=== PATIENT | female | born 1935 | race Caucasian/White ===

== ENCOUNTER 2023-05-20 13:58 | Observation (INO) | payer MEDICARE, SELFPAY ==
[2023-05-20] VITALS (7 sets, daily range): BP systolic 132–170; BP diastolic 56–72; PULSE 77–92; RESP 12–20; TEMP 37–37.2; O2SAT 96–100; BMI 24.6
--- NOTE | ~2023-05-20 | MR_ITS ---
EXAMINATION: MR MRCP wo/w con/w 3D wo ind DATE: 05/21/2023 12:43 INDICATION: Epigastric pain. Transaminitis. TECHNIQUE: Magnetic resonance imaging (MRI) of the abdomen was performed without and with 13 mL Multi mei intravenous contrast. Sequences included coronal T2-weighted SS-FSE, coronal T2-weighted FS SS- FSE, coronal T2-weighted FS FIESTA, axial T2-weighted FS FIESTA, axial T2-weighted FIESTA, sagittal T 2-weighted SS-FSE, axial T1-weighted dual-echo FSPGR, axial T2-weighted SS-FSE, axial T1-weighted LAV A, axial T2-weighted STIR FSE. Thick-slab T2-weighted FRFSE-XL images were obtained for magnetic reso nance cholangiopancreatography (MRCP). Rotating maximum intensity projection 3-D reconstructions of t he volumetric data were created by the technologist. Postcontrast sequences included a time course of axial T1-weighted LAVA. COMPARISON: Ultrasound dated 05/20/2023 FINDINGS: ABDOMEN MRI: Line eventration of the right hemidiaphragm. Trace bilateral pleural effusions with mild dependent atelectasis at the bilateral lung bases. Size is normal. No pericardial effusion. There is mild central intrahepatic ductal or ductal dilation. Liver is otherwise normal gallbladder is not vi sualized and is reportedly surgically absent. Pancreas, spleen, bilateral adrenal glands and right ki dney are normal. There are several parapelvic cysts at the left kidney. Small amount of bilateral per inephric fluid. Visualized portion of the bowels are unremarkable with no obstruction. Visualized por tion of the bladder demonstrates mildly trabeculated mucosal surface which can be seen in the setting of chronic outlet obstruction or neurogenic bladder. No pathologically enlarged lower thoracic, abdo eric or upper pelvic lymphadenopathy. Normal bone marrow signal throughout. There is moderate lower thoracic spondylosis most notable for a moderate to severe stenosis at L3-L4. ABDOMEN MRCP: In addition there is mild intrahepatic ductal or ductal dilation there is mild dilation of the distal common hepatic and proximal common bile ducts which measure up to 9 mm diameter which is within norm al limits post cholecystectomy. The common bile duct tapers to 5 mm the mid duct with further smooth tapering at the ampulla without evident stricture or choledocholithiasis. Main pancreatic duct is nor mal. IMPRESSION: 1. Mild intra and extrahepatic biliary ductal dilation which is within normal limits post cholecystec priya with no evident strictures or choledocholithiasis. 2. Tiny bilateral pleural effusions with mild dependent bibasilar atelectasis. Reviewed, dictated and finalized at location A. IMPRESSION: 1. Mild intra and extrahepatic biliary ductal dilation which is within normal l imits post cholecystectomy with no evident strictures or choledocholithiasis. 2. Tiny bilateral pleural effusions with mild dependent bibasilar atelectasis.
--- NOTE | ~2023-05-20 | US_ITS ---
EXAMINATION: US right upper quadrant DATE: 05/20/2023 15:45 INDICATION: pain TECHNIQUE: Multiple grayscale and Doppler ultrasound images of the right upper quadrant were obtained . COMPARISON: None available. FINDINGS: The visualized portions of the pancreas are normal. The liver is normal with normal echogen icity and echotexture. No surface nodularity. Normal hepatopetal flow in the main portal vein. Status post cholecystectomy The common bile duct measures 7 mm. There was no sonographic Yin sign. IMPRESSION: Status post cholecystectomy, otherwise normal right upper quadrant ultrasound findings. Reviewed, dictated and finalized at location K. IMPRESSION: Status post cholecystectomy, otherwise normal right upper quadrant ultrasound f indings.
--- NOTE | ~2023-05-20 | XR_ITS ---
EXAMINATION: XR chest 2V Exam Date/Time: 05/20/2023 14:51 CDT HISTORY: STOMACH PAIN, DIARRHEA, POSSIBLE FEVER Comparison: 06/01/2004. RESULT: Lines, tubes, and devices: None. Lungs and pleura: Granulomas calcifications. Stable right hemidiaphragm elevation and eventration. S enescent/emphysematous change. No focal consolidation, pleural effusion, or pneumothorax. Cardiomediastinal silhouette: Stable. Other: No acute osseous or upper abdominal finding. IMPRESSION: No acute cardiopulmonary process. Reviewed, dictated and finalized at location K.
[2023-05-20 14:35] LABS: Basophils Percent Auto 0.6 % (0.2-1.2); Eosinophils Absolute Auto 0.1 K/mm3 (0-0.3); Eosinophils Percent Auto 1.7 % (0-4.4); Hematocrit 42.3 % (37.0-47.0); Hemoglobin 14.3 g/dL (12.0-15.0); Immature Granulocyte Absolute 0.02 K/mm3 (0.00-0.031); Immature Granulocyte Percent A 0.3 % (0-0.5); Lymphocytes Absolute Auto 0.89 K/mm3 (0.9-3.2); Lymphocytes Percent Auto 12.5 % (18.3-44.2); Mean Corpuscular HGB Conc 33.8 g/dl (32-36); Mean Corpuscular Hemoglobin 31.4 pg (26-34); Mean Corpuscular Volume 92.8 fl (80-100); Mean Platelet Volume 9.4 fl (7.4-10.4); Monocytes Absolute Auto 0.9 K/mm3 (0.1-0.6); Monocytes Percent Auto 12.5 % (2.6-8.5); Neutrophils Absolute Auto 5.1 K/mm3 (1.3-6.7); Neutrophils Percent Auto 72.4 % (45.5-73.1); Platelet Count Result 191 k/mm3 (150-375); Red Blood Count 4.56 M/mm3 (4.2-5.4); Red Cell Distribution Width 13.4 % (11.5-14.5); White Blood Count 7.1 K/mm3 (4.5-10.0)
--- NOTE | 2023-05-20 14:39 | ECG_ITS ---
Measurements Intervals [place] Rate: 78 P: 43 KS: 159 QRS: -15 QRSD: 88 T: 60 QT: 285 QTc: 324 Interpretive Statements SINUS RHYTHM DELAYED PRECORDIAL R/S TRANSITION LEFT VENTRICULAR HYPERTROPHY WITH ST-T CHANGE NONSPECIFIC ST & T-WAVE ABNORMALITY- ANTEROLAT/INF LEADS BASELINE WANDER- I, II, V6 BORDERLINE ECG NO PREVIOUS ECG AVAILABLE FOR COMPARISON Electronically Signed On 05-20-2023 16:11:32 CDT by Elliott Hernández D.O.
[2023-05-20 14:45] LABS: Alanine Aminotransferase 453 U/L (6-35); Albumin Level 4.3 g/dL (3.5-5.1); Alkaline Phosphatase 287 U/L (38-126); Anion Gap 4 mmol/L (8-16); Aspartate Amino Transferase 506 U/L (14-36); Bilirubin,Total 3.5 mg/dL (0.2-1.3); Blood Urea Nitrogen 10 mg/dL (7-17); Calcium 10.1 mg/dL (8.4-10.2); Carbon Dioxide 33 mmol/L (22-30); Chloride 101 mmol/L (98-107); Estimated CRCL calculation 40 ml/min; Estimated Glomerular Filt Rate > 60; Glucose 111 mg/dL (65-110); Lipase 146 U/L (23-300); Potassium 3.3 mmol/L (3.4-5.0); Sodium 138 mmol/L (137-145)
[2023-05-20 15:15] LABS: Troponin I < 0.012 ng/mL (0.000-0.034)
--- NOTE | 2023-05-20 15:15 | ED.ABDPAIN ---
HPI - Abdominal Pain General Chief Complaint: Abdominal Pain Stated Complaint: abd pain Time Seen by Provider: 05/20/23 14:14 History of Present Illness HPI narrative: patient is an 88-year-old female who presents ER with epigastric abdominal pain. Ongoing for last week. Waxes and wanes in intensity. Cannot identify any aggravating or alleviating factors. No association with food. She has had her gallbladder removed. She reports she also gets some mild chest pressure with this. She went to an ER last night reports having a CT scan with the infiltrate her arm with contrast and then lab work performed. She reports everything was normal so she was discharged home. Symptoms persist so she presents for a 2nd evaluation. Related Data Allergies Allergy/AdvReac Type Severity Reaction Status Date / Time No Known Allergies Allergy Unknown Verified 05/20/23 14:06 Review of Systems Review of Systems: All systems reviewed & are unremarkable except as noted in HPI and below Constitutional: Constitutional: Denies chills, Denies fatigue and Denies fever(s) ENT: Denies nasal congestion and Denies sore throat Cardiovascular: Cardiovascular: Denies chest pain, Denies rapid heart rate and Denies radiating jaw, neck or arm pain Respiratory: Respiratory: Reports no additional respiratory complaints Gastrointestinal: Gastrointestinal: Reports abdominal pain, Denies constipation, Denies heartburn, Denies diarrhea, Reports nausea and Denies vomiting Genitourinary: Genitourinary: Reports no additional female genitourinary complaints PMFSH Past Medical History Medical History (Updated 05/20/23 @ 17:38 by Bryant Duron MD) Hyperlipidemia Hypertension Surgical History Surgical History (Updated 05/20/23 @ 15:20 by Bryant Duron MD) H/O hernia repair History of appendectomy History of cholecystectomy History of hysterectomy Exam Narrative: GENERAL: Well-appearing, well-nourished, and in no acute distress. HEAD: Normocephalic, atraumatic. ENT: Mucous membranes moist. NECK: Supple. CHEST: Clear to auscultation. No respiratory distress. HEART: Regular rate and rhythm. Normal peripheral pulses. ABDOMEN: Soft, nontender, nondistended, normal active bowel sounds. EXTREMITIES: Normal range of motion. No edema. SKIN: Warm, dry, no rash. NEURO: Alert and oriented x3. PSYCH: Normal mood and affect. Course Course Emergency Course: Patient resting comfortably. Informed of results. Discussed case with GI. Recommended admission for MRCP. Vital Signs Vital signs: Vital Signs Temperature 98.9 F 05/20/23 13:53 Pulse Rate 90 05/20/23 13:53 Respiratory Rate 20 05/20/23 13:53 Blood Pressure 170/72 H 05/20/23 13:53 Pulse Oximetry 100 05/20/23 13:53 Oxygen Delivery Room Air 05/20/23 13:53 Temperature 98.9 F 05/20/23 13:53 Pulse Rate 77 05/20/23 16:46 Respiratory Rate 19 05/20/23 16:46 Blood Pressure 149/62 H 05/20/23 16:46 Pulse Oximetry 96 05/20/23 16:46 Oxygen Delivery Room Air 05/20/23 13:53 MDM - Abdominal Pain Lab Data 05/20/23 14:26 05/20/23 14:26 Labs: Lab Results 05/20/23 05/20/23 Range/Units 14:26 15:10 WBC 7.1 (4.5-10.0) K/mm3 RBC 4.56 (4.2-5.4) M/mm3 Hgb 14.3 (12.0-15.0) g/dL Hct 42.3 (37.0-47.0) % MCV 92.8 (80-100) fl MCH 31.4 (26-34) pg MCHC 33.8 (32-36) g/dl RDW 13.4 (11.5-14.5) % Plt Count 191 (150-375) k/mm3 MPV 9.4 (7.4-10.4) fl Immature Gran % (Auto) 0.3 (0-0.5) % Neut % (Auto) 72.4 (45.5-73.1) % Lymph % (Auto) 12.5 L (18.3-44.2) % Nye % (Auto) 12.5 H (2.6-8.5) % Eos % (Auto) 1.7 (0-4.4) % Baso % (Auto) 0.6 (0.2-1.2) % Lymph # (Auto) 0.89 L (0.9-3.2) K/mm3 Nye # (Auto) 0.9 H (0.1-0.6) K/mm3 Eos # (Auto) 0.1 (0-0.3) K/mm3 Baso # (Auto) 0.0 (0.0-0.1) K/mm3 Abs Immat Gran (auto) 0.02 (0.00-0.031) K/mm3 Absolute Neuts (au
[2023-05-20 15:46] LABS: Appearance Urine Cloudy (Clear); Bacteria Urine 4+ /hpf; Bilirubin Urine Negative (Negative); Blood Urine Negative (Negative); Color Urine Yellow (Yellow); Glucose Urine UA Negative (Negative); Ketones Urine Negative (Negative); Leukocyte Esterase Ur 1+ LEU/UL (Negative); Need Manual Microscopic Reviewed; Nitrate Urine Negative (Negative); Non Pathogenic Casts 0-2; Protein Urine Negative (Negative); RBC Urine 51-100 /hpf (0-2); Specific Grav Ur 1.024 (1.001-1.035); Squamous Epithelial Cell Urine Few /hpf (Few); pH Urine 5.5 (5.0-9.0)
[2023-05-20 15:48] LABS: Add Urine Microscopic? YES
[2023-05-20] MEDS: SODIUM CHLORIDE 0.9% IV 1,000 ML 125 ML IV CONT (16:45)
--- NOTE | 2023-05-20 18:28 | ADMGEN ---
This patient, Kari Haro, was admitted to [facility] Surg Room 304-02. Patient/family oriented to hospital policies and general routines including ID bracelet, bed and alarms, visiting hours, pain management, procedures, bathroom and other care routines, personal items, smoking policy, room service/diet, and visiting hours. Information on how to activate the Rapid Response Team has been discussed. Patient/Family are encouraged to report perceived risks to care and to ask questions if they do not understand what they are told or what they should do.
--- NOTE | 2023-05-20 21:58 | PM.IMHP ---
H&P: HPI History of Present Illness Date/Time: 05/20/23 21:58 Chief Complaint: Abdominal pain Narrative: 88-year-old female past medical history of essential hypertension and prior cholecystectomy who presented to the ER with abdominal pain. The patient reports that she had been out of town and began having epigastric abdominal pain 5 days ago. In pain was just below lower breast bone and at times was 10/10 in intensity. Symptoms would wax and wane. She could not identify any eliciting or relieving factors. She does not notice direct correlation with eating but she reports that she feels bad enough and becomes nauseous enough that she does not want to eat. She had a normal bowel movement 2 days ago. She reports that her abdomen does feel bloated. She has not had any associated chest pain or shortness of breath. In the ER she had a right upper quadrant ultrasound which demonstrated normal changes consistent with patient's history of prior cholecystectomy. Labs demonstrated potassium at 3.3, bilirubin at 3.5 AST 5 was 6 ALT 453 an alk-phos of 287. Patient has not noticed any significant scleral icterus but she does have subtle icterus on exam. Her urine in the ER demonstrated 1+ esterase 51-100 rbc's and 6-10 wbc's with 4+ bacteria. She reports that she has had 3 or 4 bladder suspension surgeries in the past. She occasionally does have difficulty with emptying her bladder. On exam she had a palpable bladder that was up near the umbilicus. The patient went void. Nursing staff check postvoid residual the patient still had over 500 mL of urine. And patient got up and then re-attempted voiding in had void of another 102 100 and else and still had approximately 400 and urinary retention on bladder scan. The patient was straight cathed for total of 550 mL of urine. She denies any dysuria or changes in urinary frequency. She has not noticed hematuria. She has not had any fevers or chills. Review of Systems Review of Systems: 12 systems were reviewed with pertinent positives and negatives per HPI. Except as documented in the HPI, all other systems were reviewed and are negative. [facility] Past Medical History Medical History (Updated 05/20/23 @ 22:05 by Jessica Randle DO) Hyperlipidemia Hypertension Surgical History Surgical History (Updated 05/21/23 @ 06:17 by Jessica Randle DO) H/O hernia repair History of appendectomy History of bladder suspension procedure Multiple History of cholecystectomy History of hysterectomy Family History Family History (Updated 05/21/23 @ 07:03 by Jessica Randle DO) Sibling , At age 93 Diabetes mellitus Mother , At age 99 No problems noted. Other No significant family history Social History Social History (Updated 05/21/23 @ 07:05 by Jessica Randle DO) Social History: The patient is currently living with her 2nd after her 1st . She has been to her current for 21 years. She raised 5 children. Her oldest son of complications of diabetes. 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 She is a lifelong nonsmoker and does not drink alcohol. Code status: Full code (she would not want long-term ventilation or feeding tube) Healthcare power of trade mark attorney: Laisha Rajan (daughter) Smoking status: Never smoker Alcohol intake: never Substance use: never Do You Feel Safe in your Home?: Yes Lack of Transportation: No Lack of Food: Never True Current Housing: I Have Housing Concerned About Future Housing: No Difficulty Paying Gas/Electric Bills: No Difficulty Paying for Meds: No Currently Unemployed: No Education: Don't Know Difficulty w/ Childcare or Family Care: No Spiritual care concerns: No Meds Home Medications and Allergies Home Medications Medication Instructions Recorded Confirmed Type losartan 100 1 tablet PO DAILY 05/20/23 05/20/23 [place]
[2023-05-20] MEDS: MELATONIN 5 MG TABLET PO (23:43)
[2023-05-20] MEDS: POTASSIUM CHLORIDE INJ 40 MEQ in SODIUM CHLORIDE 0.9% IV 500 ML 130 MEQ IVPB (23:43)
[2023-05-21 05:51] VITALS: BP 139/66; PULSE 80; RESP 17; TEMP 36.6; O2SAT 97
[2023-05-21 06:41] LABS: Alanine Aminotransferase 327 U/L (6-35); Albumin Level 3.2 g/dL (3.5-5.1); Alkaline Phosphatase 231 U/L (38-126); Anion Gap 3 mmol/L (8-16); Aspartate Amino Transferase 173 U/L (14-36); Bilirubin,Total 2.6 mg/dL (0.2-1.3); Blood Urea Nitrogen 9 mg/dL (7-17); Calcium 8.9 mg/dL (8.4-10.2); Carbon Dioxide 26 mmol/L (22-30); Chloride 107 mmol/L (98-107); Estimated CRCL calculation 51 ml/min; Estimated Glomerular Filt Rate > 60; Glucose 89 mg/dL (65-110); Potassium 3.7 mmol/L (3.4-5.0); Sodium 136 mmol/L (137-145)
[2023-05-21 06:47] LABS: Hematocrit 36.6 % (37.0-47.0); Hemoglobin 11.9 g/dL (12.0-15.0); Mean Corpuscular HGB Conc 32.5 g/dl (32-36); Mean Corpuscular Hemoglobin 30.7 pg (26-34); Mean Corpuscular Volume 94.6 fl (80-100); Mean Platelet Volume 9.7 fl (7.4-10.4); Platelet Count Result 155 k/mm3 (150-375); Red Blood Count 3.87 M/mm3 (4.2-5.4); Red Cell Distribution Width 13.5 % (11.5-14.5); White Blood Count 6.9 K/mm3 (4.5-10.0)
[2023-05-21 08:00] VITALS: O2SAT 97
--- NOTE | 2023-05-21 09:25 | WPDGICN ---
Assessment and Plan Assessment and plan (1) Transaminitis: Code(s): R74.01 - Elevation of levels of liver transaminase levels Status: Acute Assessment and Plan: -elevated transaminases with a total bilirubin of 3.5, AST 506, ALT 453, alkaline phosphatase 287, more hepatocellular pattern although with acute epigastric abdominal pain choledocholithiasis to be excluded and MRCP is scheduled for today and still pending - Was take 4 Tylenol arthritis daily x 2 weeks. -LFT are trending down -other differentials including viral etiologies and other chronic liver diseases if MRCP is negative. -consider liver workup and for viral etiologies and other chronic liver diseases if MRCP is normal. -further recs following MRCP (pending as of 1542) (2) Hyperbilirubinemia: Code(s): E80.6 - Other disorders of bilirubin metabolism Status: Acute Assessment and Plan: see above (3) Epigastric pain: Code(s): R10.13 - Epigastric pain Status: Acute Assessment and Plan: -This is cyclical since Sunday. Abd US is negative along with normal CXR -PPI recommended -MRCP scheduled -Consider EGD if MRCP is negative (4) Gas bloat syndrome: Code(s): K92.89 - Other specified diseases of the digestive system Status: Acute (5) Hypertension: Code(s): I10 - Essential (primary) hypertension Status: Chronic (6) History of cholecystectomy: Code(s): Z90.49 - Acquired absence of other specified parts of digestive tract Status: Acute GI Consult Note Consult date/time: 05/21/23 09:25 Reason for consult: Elevated transaminase and epigastric pain HPI: Kari Haro is a 88 year old female as be seen at the request of the hospitalist for elevated transaminase. Past medical history of hypertension, hyperlipidemia, cholecystectomy, hysterectomy, bladder suspension, appendectomy and inguinal hernia repairs. She states she was out of town in [place] for 2 weeks and on Sunday while in [place] had acute episode of epigastric abdominal pain underneath breast bone with nausea but no vomiting, felt like if she would vomit she feels somewhat better. She has not ate much since Sunday as she is afraid to eat. She had another episode Sunday and on Sunday went to [facility] ER and was told everything was negative. The pain will stop on its own. She was brought here yesterday for similar symptoms again. When she gets the intense pain it will make her feel very fatigued after. She also felt like she could burp but would not get substantial relief. Did try Gas-X with somewhat improvement. She states she had a ?blockage? many years ago here but I cannot pull up any records. She denies any chronic NSAID use but does report taking 4 Tylenol Arthritis daily over the last 2 weeks while in [place] due to arthritis along with Hylands leg cramps. Takes multtiple supplements including fish oil, biotin, D3, B12, apple cider vinegar, and turmeric. Unknown if gallbladder was removed due to stones or dyskinesia. Denies any change in bowel habits, constipation, diarrhea, melena or hematochezia. Denies any scleral icterus, jaundice or colic stools. Denies any recent antibiotic or sick or ill exposures. No recent fevers or chills. She has never been told she had elevated liver enzymes in the past. No family history of chronic liver diseases. Right upper quadrant ultrasound was normal. LFTs were significantly elevated with the total bilirubin of 3.5 AST of 506, ALT 453 and alkaline phosphatase of 287. Review of Systems Constitutional: Constitutional: Reports as per HPI Eyes: Eyes: Denies blurry vision ENT: Reports as per HPI Cardiovascular: Cardiovascular: Reports as per HPI Respiratory: Respiratory: Denies dyspnea Gastrointestinal: Gastrointestinal: Reports as per HPI Genitourinary: Genitourinary: Denies dysuria Musculoskeletal: Musculoskeletal: Reports as per H
[2023-05-21 10:58] VITALS: BMI 24.6
[2023-05-21] MEDS: diazePAM (*CRX) 5 MG TABLET PO (11:25)
[2023-05-21 14:00] VITALS: BP 148/64; PULSE 72; RESP 14; TEMP 36.6; O2SAT 100
[2023-05-21] MEDS: LOSARTAN POTASSIUM 100 MG TABLET PO (14:36)
[2023-05-21] MEDS: hydroCHLOROthiazide 12.5 MG CAPSULE PO (14:37)
[2023-05-21] MEDS: SODIUM CHLORIDE 0.9% IV 1,000 ML 125 ML IV CONT ×2 (14:51→22:05)
--- NOTE | 2023-05-21 15:02 | PM.IMPN ---
Progress Note: A&P Assessment and Plan (1) Transaminitis: Code(s): R74.01 - Elevation of levels of liver transaminase levels Status: Acute Assessment and Plan: Was taking 4 Tylenol arthritis daily x 2 weeks. elevated with a total bilirubin of 3.5, AST 506, ALT 453 on admission, alkaline phosphatase 287 GI following - MRCP today, awaiting results and further recs LFT are trending down (173/327) this am consider liver workup and for viral etiologies and other chronic liver diseases if MRCP is normal. (2) Epigastric pain: Code(s): R10.13 - Epigastric pain Status: Acute Assessment and Plan: Abd US is negative along with normal CXR will start on PPI MRCP today, GI to consider EGD if negative (3) Hyperbilirubinemia: Code(s): E80.6 - Other disorders of bilirubin metabolism Status: Acute Assessment and Plan: see above plan (4) Hypertension: Code(s): I10 - Essential (primary) hypertension Status: Chronic Assessment and Plan: monitor continue the patient's home losartan hydrochlorothiazide Subjective Date/time seen: 05/21/23 15:02 Interval history: Patient resting comfortably in bed this morning, no acute distress. Her daughter is at her bedside. She denies abdominal or urinary symptoms this am. Her urine culture is pending, but I started her on Rocephin for the time being. GI following and she had an MRCP today, pending report and further recs. Will trial clears. Review of Systems Review of Systems: 12 systems were reviewed with pertinent positives and negatives per HPI. Except as documented in the HPI, all other systems were reviewed and are negative. Exam Narrative: GENERAL: Well-appearing, well-nourished, and in no acute distress. HEAD: Normocephalic, atraumatic. ENT: Mucous membranes moist. NECK: Supple. CHEST: Clear to auscultation. No respiratory distress. HEART: RRR. Normal peripheral pulses. ABDOMEN: Soft, nontender, nondistended, normal active bowel sounds. EXTREMITIES: Normal range of motion. No edema. SKIN: Warm, dry, no rash. NEURO: Alert and oriented x3. PSYCH: Normal mood and affect. Objective Data Vital Signs Vital Signs: Vital Signs - 24 hr 05/20/23 15:15 05/20/23 15:38 05/20/23 16:46 Temperature Pulse Rate 92 80 77 Respiratory Rate 18 19 Blood Pressure 158/68 H 149/62 H Pulse Oximetry 100 96 Oxygen Delivery 05/20/23 18:07 05/20/23 18:43 05/20/23 18:31 Temperature 98.7 F 98.9 F Pulse Rate 82 88 Respiratory Rate 12 16 Blood Pressure 132/56 L 150/68 H Pulse Oximetry 99 97 Oxygen Delivery Room Air 05/20/23 20:27 05/20/23 20:00 05/21/23 05:51 Temperature 98.6 F 97.9 F Pulse Rate 80 80 Respiratory Rate 17 17 Blood Pressure 147/64 H 139/66 Pulse Oximetry 98 97 Oxygen Delivery Room Air 05/21/23 08:00 05/21/23 14:00 Temperature 97.9 F Pulse Rate 72 Respiratory Rate 14 Blood Pressure 148/64 H Pulse Oximetry 97 100 Oxygen Delivery Room Air Intake/Output Intake/Output: Intake & Output 05/18/23 05/19/23 05/20/23 05/21/23 23:59 23:59 23:59 23:59 Intake Total 1050 Output Total 550 Balance 500 Meds/Results Medications: Active Medications Generic Name Dose Route Start Last Admin Trade Name Freq PRN Reason Stop Dose Admin Diazepam 5 mg 05/21/23 09:00 05/21/23 11:25 Diazepam (*Crx) 5 Mg Tablet PO 5 mg DAILY VAMSHI Administration Hydrochlorothiazide 12.5 mg 05/21/23 09:00 05/21/23 14:37 Hydrochlorothiazide 12.5 Mg Capsule PO 06/20/23 08:59 12.5 mg DAILY VAMSHI Administration Sodium Chloride 1,000 mls @ 125 mls/hr 05/20/23 16:30 05/21/23 14:51 Normal Saline Iv IV CONT 125 mls/hr .Q8H VAMSHI Administration Ceftriaxone Sodium 1 gm in 50 mls @ 100 mls/hr 05/21/23 09:00 05/21/23 11:27 Rocephin 1 Gm/Ns 50 Ml IVPB Infused Q24H VAMSHI Infusion Losartan Potassium 100 mg 05/21/23 09:00 05/21/23
[2023-05-21 20:08] VITALS: BP 155/66; PULSE 72; RESP 16; TEMP 36.9; O2SAT 100
[2023-05-21] MEDS: MELATONIN 5 MG TABLET PO (22:05)
[2023-05-22 05:49] VITALS: BP 157/68; PULSE 77; RESP 16; TEMP 36.7; O2SAT 97
[2023-05-22] MEDS: SODIUM CHLORIDE 0.9% IV 1,000 ML 125 ML IV CONT (06:35)
[2023-05-22 06:55] LABS: Basophils Absolute Auto 0.1 K/mm3 (0.0-0.1); Basophils Percent Auto 0.8 % (0.2-1.2); Eosinophils Absolute Auto 0.3 K/mm3 (0-0.3); Eosinophils Percent Auto 4.4 % (0-4.4); Hematocrit 37.6 % (37.0-47.0); Immature Granulocyte Absolute 0.03 K/mm3 (0.00-0.031); Immature Granulocyte Percent A 0.4 % (0-0.5); Lymphocytes Absolute Auto 1.37 K/mm3 (0.9-3.2); Mean Corpuscular HGB Conc 31.9 g/dl (32-36); Mean Corpuscular Hemoglobin 30.5 pg (26-34); Mean Corpuscular Volume 95.4 fl (80-100); Mean Platelet Volume 9.6 fl (7.4-10.4); Monocytes Absolute Auto 1.1 K/mm3 (0.1-0.6); Monocytes Percent Auto 14.6 % (2.6-8.5); Neutrophils Absolute Auto 4.4 K/mm3 (1.3-6.7); Neutrophils Percent Auto 60.8 % (45.5-73.1); Platelet Count Result 157 k/mm3 (150-375); Red Blood Count 3.94 M/mm3 (4.2-5.4); Red Cell Distribution Width 13.7 % (11.5-14.5); White Blood Count 7.2 K/mm3 (4.5-10.0)
[2023-05-22 07:06] LABS: Alanine Aminotransferase 222 U/L (6-35); Albumin Level 3.1 g/dL (3.5-5.1); Alkaline Phosphatase 203 U/L (38-126); Anion Gap 0 mmol/L (8-16); Aspartate Amino Transferase 66 U/L (14-36); Bilirubin,Total 1.1 mg/dL (0.2-1.3); Blood Urea Nitrogen 9 mg/dL (7-17); Calcium 8.7 mg/dL (8.4-10.2); Carbon Dioxide 29 mmol/L (22-30); Chloride 109 mmol/L (98-107); Estimated CRCL calculation 51 ml/min; Estimated Glomerular Filt Rate > 60; Glucose 86 mg/dL (65-110); Potassium 3.8 mmol/L (3.4-5.0); Sodium 138 mmol/L (137-145)
[2023-05-22 07:43] LABS: Hepatitis B Surface Antigen Negative (Negative)
[2023-05-22 07:49] LABS: HAV RESULT Negative (Negative); Hepatitis B Core IgM Result Negative (Negative)
[2023-05-22 08:01] LABS: Hepatitis C Virus Antibody Negative (Negative)
[2023-05-22] MEDS: LOSARTAN POTASSIUM 100 MG TABLET PO (10:39)
[2023-05-22] MEDS: hydroCHLOROthiazide 12.5 MG CAPSULE PO (10:39)
[2023-05-22] MEDS: diazePAM (*CRX) 5 MG TABLET PO (10:39)
[2023-05-22] MEDS: IBUPROFEN 400 MG TABLET PO (10:40)
[2023-05-22] MEDS: PANTOPRAZOLE SODIUM IV 40 MG VIAL IV PUSH (10:44)
--- NOTE | 2023-05-22 12:15 | WPDGIPROGNO ---
Progress Note: A&P Assessment and Plan (1) Elevated liver enzymes: Code(s): R74.8 - Abnormal levels of other serum enzymes Status: Acute Assessment and Plan: mrcp reviewed, no bile duct abnormalitiy wonder if she passes stone/sludge already trending down another differential could be SOD tolerating diet, she can go home and follow-up office in ~ 4 weeks with CMP as outpatient (2) Epigastric pain: Code(s): R10.13 - Epigastric pain Status: Acute Assessment and Plan: resolved (3) Gas bloat syndrome: Code(s): K92.89 - Other specified diseases of the digestive system Status: Acute (4) History of cholecystectomy: Code(s): Z90.49 - Acquired absence of other specified parts of digestive tract Status: Acute Subjective Date/time seen: 05/22/23 12:15 Interval history: no more abdominal pain, she is feeling comfortable today with neck pain using ice pack, probably positional Review of Systems Review of Systems: All systems reviewed & are unremarkable except as noted in HPI and below Exam Const: General: cooperative, healthy appearing, comfortable and no acute distress Orientation/consciousness: oriented to person, oriented to place and oriented to time HENMT: Head: normal to inspection Face/Nose/Sinus: Normal nares present Eyes: General: appearance normal, both eyes and all related structures Neck: Other: neck discomfort Chest: Chest palpation & inspection: normal inspection of the chest Resp: Effort & Inspection: normal respiratory effort and able to speak in complete sentences Auscultation: clear to auscultation bilaterally Cardio: Rate: regular rate Rhythm: regular rhythm GI: Inspection: normal to inspection GI Palp: Yes Soft to palpation and No Tenderness to palpation present (GI) Auscultation: normal bowel sounds Rectal Exam: deferred Skin: General skin exam: normal color and no rashes or lesions noted Neuro: General: oriented to person, oriented to place and oriented to time Speech: normal speech Extrem: General: normal to inspection Psych: Mental Status: mental status grossly normal Objective Data Vital Signs Vital Signs: Vital Signs - 24 hr 05/21/23 14:00 05/21/23 20:08 05/21/23 20:00 Temperature 97.9 F 98.5 F Pulse Rate 72 72 Respiratory Rate 14 16 Blood Pressure 148/64 H 155/66 H Pulse Oximetry 100 100 Oxygen Delivery Room Air 05/22/23 05:49 Temperature 98.1 F Pulse Rate 77 Respiratory Rate 16 Blood Pressure 157/68 H Pulse Oximetry 97 Oxygen Delivery Intake/Output Intake/Output: Intake & Output 05/19/23 05/20/23 05/21/23 05/22/23 23:59 23:59 23:59 23:59 Intake Total 2254.2 1320 Output Total 950 Balance 1304.2 1320 Meds/Results Medications: Active Medications Generic Name Dose Route Start Last Admin Trade Name Freq PRN Reason Stop Dose Admin Hydrochlorothiazide 12.5 mg 05/21/23 09:00 05/22/23 10:39 Hydrochlorothiazide 12.5 Mg Capsule PO 06/20/23 08:59 12.5 mg DAILY VAMSHI Administration Ibuprofen 400 mg 05/22/23 10:10 05/22/23 10:40 Ibuprofen 400 Mg Tablet PO 400 mg Q6H PRN Administration Pain Rated 1-3 Losartan Potassium 100 mg 05/21/23 09:00 05/22/23 10:39 Losartan Potassium 100 Mg Tablet PO 06/20/23 08:59 100 mg DAILY VAMSHI Administration Melatonin 5 mg 05/20/23 21:00 05/21/23 22:05 Melatonin 5 Mg Tablet PO 5 mg HS VAMSHI Administration Ondansetron HCl 4 mg 05/20/23 16:29 Ondansetron Inj 4 Mg/2 Ml Vial IV PUSH Q4H PRN Nausea Pantoprazole Sodium 40 mg 05/22/23 09:00 05/22/23 10:44 Pantoprazole Sodium Iv 40 Mg Vial IV PUSH 40 mg QAM VAMSHI Administration Radiology Results: ITS Impressions Chest X-Ray 05/20/23 15:08 IMPRESSION: No acute cardiopulmonary process. Upper Quadrant Ultrasound 05/20/23 16:04 IMPRESSION: Status post cholecystectomy, otherwise normal right upper quadra
--- NOTE | 2023-05-22 13:23 | PM.DS ---
DS: Admitting Diagnosis Discharge Date 05/22/23 Admitting Diagnosis abdominal pain DS: Discharge Diagnosis Discharge Diagnosis (1) Transaminitis: Code(s): R74.01 - Elevation of levels of liver transaminase levels Status: Acute Assessment and Plan: Was taking 4 Tylenol arthritis daily x 2 weeks. GI following - MRCP showed no bile duct abnormality; follow up in 4 weeks LFT are trending down (66/222) this am hep panel negative (2) Epigastric pain: Code(s): R10.13 - Epigastric pain Status: Resolved (3) Hyperbilirubinemia: Code(s): E80.6 - Other disorders of bilirubin metabolism Status: Acute (4) Hypertension: Code(s): I10 - Essential (primary) hypertension Status: Chronic Assessment and Plan: continue losartan hydrochlorothiazide DS: Summary Hospital Course Hospital Course: Patient is 88-year-old female with PMH of essential hypertension and prior cholecystectomy admitted with abdominal pain. In the ER she had a right upper quadrant ultrasound which demonstrated normal changes consistent with patient's history of prior cholecystectomy. GI consulted with MRCP showing no bile duct abnormality. Liver enzymes continue to trend down. Abdominal pain has resolved. She is to follow up with her primary and GI in 4 weeks. Pain could be resolved passage of stone or SOD. PPI ordered daily for d/c. Urine culture negative, Rocephin d/c. She is stable to return home today as she is now tolerating a regular diet and cleared by GI. Status at Discharge Functional status at discharge: independent ambulation Overall status at discharge: patient is back to baseline Time Spent with Patient Time attestation: Total time spent providing and/or coordinating discharge services: Exam Narrative: GENERAL: Well-appearing, well-nourished, and in no acute distress. HEAD: Normocephalic, atraumatic. ENT: Mucous membranes moist. NECK: Supple. CHEST: Clear to auscultation. No respiratory distress. HEART: RRR. Normal peripheral pulses. ABDOMEN: Soft, nontender, nondistended, normal active bowel sounds. EXTREMITIES: Normal range of motion. No edema. SKIN: Warm, dry, no rash. NEURO: Alert and oriented x3. PSYCH: Normal mood and affect. DS: Data Data Completed and Pending Labs on day of discharge: Labs from last 24 hours 05/22/23 06:20 WBC 7.2 RBC 3.94 L Hgb 12.0 Hct 37.6 MCV 95.4 MCH 30.5 MCHC 31.9 L RDW 13.7 Plt Count 157 MPV 9.6 Immature Gran % (Auto) 0.4 Neut % (Auto) 60.8 Lymph % (Auto) 19.0 Dickson % (Auto) 14.6 H Eos % (Auto) 4.4 Baso % (Auto) 0.8 Lymph # (Auto) 1.37 Dickson # (Auto) 1.1 H Eos # (Auto) 0.3 Baso # (Auto) 0.1 Abs Immat Gran (auto) 0.03 Absolute Neuts (auto) 4.4 Absolute Nucleated RBC 0.000 Nucleated RBC % 0.0 Sodium 138 Potassium 3.8 Chloride 109 H Carbon Dioxide 29 Anion Gap 0 L BUN 9 Creatinine 0.60 L Estim Creat Clear Calc 51 Estimated GFR > 60 Glucose 86 Calcium 8.7 Total Bilirubin 1.1 AST 66 H ALT 222 H Alkaline Phosphatase 203 H Total Protein 6.0 L Albumin 3.1 L Hepatitis A IgM Ab Negative Hep Bs Antigen Negative Hep B Core IgM Ab Negative Hepatitis C Ab Screen Negative Discharge Plan Discharge Attending physician on discharge: Bartolo Anthony Consulting providers: Cornelia Shaw; Max Jj Discharging Clinician: Rabia Bennett Anticipated Discharge Date/Time: 05/22/23 11:07 Patient Disposition: Home, Self-Care Activity: as tolerated Diet: heart healthy Discharge Instructions: Continue to take your medications as directed. Follow up with your primary care doctor in 1-2 weeks. Continue limit your intake of Tylenol as this may contribute to your elevated liver enzymes. Seek emergency medical care if you develop: severe abdominal pain unable to eat or drink fluids chest pain shortness of breath Stand Alone Forms: Meena
== END 2023-05-22 14:20 | disposition home or self-care (01) ==
LOC: ANHED 17:38 → ANH3MEDSUR 17:58
PROVIDERS: Internal Medicine; Internal Medicine Gastroenterology; Admitting Provider Family Medicine; Emergency Provider Emergency Medicine; PCP Internal Medicine; Visit Provider Nurse Practitioner
DX: R10.13 Epigastric pain (principal); R74.01 Elevation of levels of liver transaminase levels; E80.6 Other disorders of bilirubin metabolism; K92.89 Other specified diseases of the digestive system; R33.9 Retention of urine, unspecified; R94.31 Abnormal electrocardiogram [ECG] [EKG]; I10 Essential (primary) hypertension; E78.5 Hyperlipidemia, unspecified; Z96.0 Presence of urogenital implants; Z90.49 Acquired absence of other specified parts of digestive tract; Z90.710 Acquired absence of both cervix and uterus; Z98.890 Other specified postprocedural states
CPT/HCPCS: 36415; 71046; 74183; 76376; 76705; 80053; 80074; 83690; 84484; 85025; 85027; 87086; 93005; 96361; 96365; 96375; 99285; A9270; A9577; C9113; G0378; J0696; J3480; J7030; J7040

== ENCOUNTER 2024-06-17 13:11 | Emergency (ER) | payer MEDICARE, SELFPAY ==
[2024-06-17] VITALS (24 sets, daily range): BP systolic 152–195; BP diastolic 67–117; PULSE 67–90; RESP 11–26; TEMP 36.6–36.7; O2SAT 87–100
--- NOTE | ~2024-06-17 | CT_ITS ---
EXAMINATION: CTA BRAIN/CAROTID DATE: 06/17/2024 13:32 INDICATION: Sudden onset dizziness versus transient ischemic episode or stroke TECHNIQUE: Computed tomographic angiography (CTA) of the head and neck was performed with 100 mL Omni paque-350 intravenous contrast. Multiplanar reconstructions and maximum intensity projection 3D-recon structions of the carotid arteries and of the intracranial arteries were created by the technologist on a separate workstation. Automated exposure control and iterative reconstruction technique were emp loyed.The dose-length product was 836.01 mGy-cm. COMPARISON: None. FINDINGS: Carotid arteries: Suggestion of a partially visualized diverticulum of chondral along the inferolateral margin of the i ncompletely visualized aortic arch. Small amount of nonhemodynamically significant atherosclerotic pl aque and no dissection along the visualized portion of the arch and great vessels arising from the ar ch. There is small amount of atherosclerotic plaque with 0% stenosis of the right carotid bulb relati ve to normal distal artery lumen diameter (NASCET criteria). There is small about the prior plaque in the distalmost left common carotid artery with no evident plaque and 0% stenosis of the left carotid bulb relative to normal distal artery lumen diameter. Multinodular goiter with left thyroid nodule m easuring up to 1.8 cm. Cervical soft tissues are otherwise unremarkable. Visualized upper lungs are c lear. Moderate cervical spondylosis. Intracranial arteries The left vertebral artery is mildly dominant. There is an hemodynamically significant atherosclerotic plaque along the bilateral carotid siphons. There is no hemodynamically significant stenosis in the vertebral, basilar and internal carotid arteries. Vertebral arteries are codominant. There is a <2 mm diameter infundibulum arising from the right internal carotid artery origin of either a tiny either anterior choroidal artery or posterior communicating artery. There are no aneurysms identified. Both A1 and P1 segments are patent. There is a moderate 50-70% stenosis stenosis at the right P1 segment Cerebral arterial arborization appears symmetric. No abnormal enhancing brain lesions identified. IMPRESSION: 1. 0% stenosis of the right and left carotid bulbs relative to normal distal artery lumen diameter (N ASCET criteria). 2. Moderate, 50-70% stenosis at the right P1 segment. Otherwise unremarkable cerebral CT angiogram. Reviewed, dictated and finalized at location A. IMPRESSION: 1. 0% stenosis of the right and left carotid bulbs relative to normal distal ar juliette lumen diameter (NASCET criteria). 2. Moderate, 50-70% stenosis at the right P1 segment. Otherwise unremarkable ce rebral CT angiogram.
--- NOTE | ~2024-06-17 | CT_ITS ---
EXAMINATION: CT brain wo con DATE: 06/17/2024 13:22 INDICATION: Dizziness versus transient ischemic episode. TECHNIQUE: Computed tomography (CT) of the head was performed without intravenous contrast. Sagittal and coronal reconstructions were performed. The mA was adjusted according to patient size. Iterative reconstruction technique was employed. The dose-length product was 605.33 mGy-cm. COMPARISON: None FINDINGS: No acute intracranial hemorrhage, acute infarction or abnormal extra axial fluid collection. There is mild scattered white matter hypoattenuation consistent with chronic small vessel ischemic disease. S ymmetric prominence of the sulci consistent with mild age-appropriate diffuse cerebral volume loss. V entricles are normal and symmetric. No mass/mass effect. Changes of bilateral intraocular lens replac ement. The orbits, paranasal sinuses and mastoid air cells are normal. IMPRESSION: 1. Normal aging brain. No acute intracranial process. Reviewed, dictated and finalized at location A.
--- NOTE | ~2024-06-17 | XR_ITS ---
CHEST RADIOGRAPH CLINICAL HISTORY: cva? . COMPARISON: 05/20/2023 TECHNIQUE: Single portable view of the chest. FINDINGS The cardiomediastinal silhouette is unremarkable. The lungs are clear. Eventration of the right hemidiaphragm, unchanged from prior. IMPRESSION: No focal infiltrate or effusion. Reviewed, dictated and finalized at location A.
--- NOTE | 2024-06-17 13:15 | ECG_ITS ---
Test Date: 2024-06-17 14:01:41 Measurements Intervals [place] Rate: 72 P: 50 MT: 153 QRS: -25 QRSD: 92 T: 66 QT: 328 QTc: 360 Interpretive Statements SINUS RHYTHM DELAYED PRECORDIAL R/S TRANSITION LEFT VENTRICULAR HYPERTROPHY WITH ST-T CHANGE MINIMAL Q WAVES- HIGH LATERAL LEADS BASELINE ARTIFACT- II, III, AVF BORDERLINE ECG No previous ECG available for comparison Electronically Signed On 06-17-2024 14:08:54 CDT by Elliott Hernández D.O.
[2024-06-17 13:35] LABS: Glucose Point of Care 114 mg/dl (65-105)
--- NOTE | 2024-06-17 13:49 | ED.GENADULT ---
HPI - General Adult General Chief complaint: Dizziness Stated complaint: dizzy-vision issues Time Seen by Provider: 06/17/24 13:38 History of Present Illness HPI narrative: Patient 89-year-old female who presents emergency department with chief complaint stroke-like symptoms. The patient reports she was last known well around noon reports she was up visiting her who was in the hospital the patient reports that she had blurry vision double vision and noticed that her right arm may have felt a little heavier than normal. The patient does report initially had the 80 TIA in the but has not had 1 since reports no prior history of dysrhythmia reports that she is just on antihypertensive and does not take an aspirin daily Related Data Home Medications ?Medication ?Instructions ?Recorded ?Confirmed ?Last Taken ?Type losartan 100 1 tablet PO DAILY 05/20/23 05/20/23 05/20/23 09:00 History mg-hydrochlorothiazide 12.5 mg tablet Allergies Allergy/AdvReac Type Severity Reaction Status Date / Time No Known Allergies Allergy Unknown Verified 05/20/23 14:06 Review of Systems Review of Systems: A 10 system review of systems was completed on the patient and is negative except for what is stated in the HPI. Nursing and ancillary documentation was reviewed. [facility] Past Medical History Medical History Elevated liver enzymes Hyperlipidemia Hypertension Surgical History Surgical History History of bladder suspension procedure Multiple History of hysterectomy History of cholecystectomy History of appendectomy H/O hernia repair Family History Family History Sibling , At age 93 Diabetes mellitus Mother , At age 99 No problems noted. Other No significant family history Social History Social History Social History: The patient is currently living with her 2nd after her 1st . She has been to her current for 21 years. She raised 5 children. Her oldest son of complications of diabetes. 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 She is a lifelong nonsmoker and does not drink alcohol. Code status: Full code (she would not want long-term ventilation or feeding tube) Healthcare power of insurance defense attorney: Laisha Rajan (daughter) Smoking status: Never smoker Alcohol intake: never Substance use: never Do You Feel Safe in your Home?: Yes Lack of Transportation: No Lack of Food: Never True Current Housing: I Have Housing Concerned About Future Housing: No Difficulty Paying Gas/Electric Bills: No Difficulty Paying for Meds: No Currently Unemployed: No Education: Don't Know Difficulty w/ Childcare or Family Care: No Spiritual care concerns: No Exam Narrative: GENERAL: Well-appearing, well-nourished, and in no acute distress. HEAD: Normocephalic, atraumatic. EYES: PERRLA and EOMI. ENT: Nares clear, no rhinorrhea or epistaxis. Mucous membranes moist. NECK: Supple. CHEST: Clear to auscultation. No respiratory distress. HEART: Regular rate and rhythm. No murmur heard. Normal peripheral pulses. ABDOMEN: Soft, nontender, nondistended, normal active bowel sounds. EXTREMITIES: Normal range of motion. No edema. SKIN: Warm, dry, no rash. NEURO: No focal deficits. Alert and oriented x3. PSYCH: Normal mood and affect. Course Vital Signs Vital signs: Vital Signs Pulse Rate 84 06/17/24 13:38 Respiratory Rate 12 06/17/24 13:38 Pulse Oximetry 99 06/17/24 13:38 Temperature 36.7 C 06/17/24 17:54 Pulse Rate 77 06/17/24 17:54 Respiratory Rate 18 06/17/24 17:54 Blood Pressure 193/83 H 06/17/24 17:54 Pulse Oximetry 97 06/17/24 17:54 Medical Decision Making [facility] Narrative Medical decision making narrative: Differential diagnosis includes CVA, TIA, CT head showed no acute abnormalities CT angiography head and neck showed no large vessel occlusion. Patient is currently back to normal and has a NIH stroke scale of 0. This time the patient does not qualify for thrombolytics therapy. The plan would be to admit the patient locally for stroke workup at this time we do not have neurology coverage and the hospitalist and recommended the patient be transferred to facility with neurology coverage. The case was discussed with [facility] transfer center and the patient was accepted to [facility] Vital Signs Vital Signs: Vital Signs Pulse Rate 84 06/17/24 13:38 Respiratory Rate 12 06/17/24 13:38 Pulse Oximetry 99 06/17/24 13:38 Temperature 36.7 C 06/17/24 17:54 Pulse Rate 77 06/17/24 17:54 Respiratory Rate 18 06/17/24 17:54 Blood Pressure 193/83 H 06/17/24 17:54 Pulse Oximetry 97 06/17/24 17:54 Lab Data 06/17/24 13:38 06/17/24 13:38 Labs: Lab Results 06/17/24 06/17/24 Range/Units 13:23 13:38 WBC 7.7 (4.5-10.0) K/mm3 RBC 4.50 (4.2-5.4) M/mm3 Hgb 13.7 (12.0-15.0) g/dL Hct 42.5 (37.0-47.0) % MCV 94.4 (80-100) fl MCH 30.4 (26-34) pg MCHC 32.2 (32-36) g/dl RDW 13.2 (11.5-14.5) % Plt Count 206 (150-375) k/mm3 MPV 9.4 (7.4-10.4) fl Immature Gran % (Auto) 0.3 (0-0.5) % Neut % (Auto) 58.6 (45.5-73.1) % Lymph % (Auto) 27.9 (18.3-44.2) % Nuckolls % (Auto) 9.4 H (2.6-8.5) % Eos % (Auto) 3.0 (0-4.4) % Baso % (Auto) 0.8 (0.2-1.2) % Lymph # (Auto) 2.16 (0.9-3.2) K/mm3 Nuckolls # (Auto) 0.7 H (0.1-0.6) K/mm3 Eos # (Auto) 0.2 (0-0.3) K/mm3 Baso # (Auto) 0.1 (0.0-0.1) K/mm3 Abs Immat Gran (auto) 0.02 (0.00-0.031) K/mm3 Absolute Neuts (auto) 4.5 (1.3-6.7) K/mm3 Absolute Nucleated RBC 0.000 (0.0-0.012) K/mm3 Nucleated RBC % 0.0 (0.0-0.2) % PT 13.5 (11.1-14.7) Seconds INR 1.0 APTT 26.1 (22.3-36.8) Seconds Sodium 141 (137-145) mmol/L Potassium 4.0 (3.4-5.0) mmol/L Chloride 106 (98-107) mmol/L Carbon Dioxide 27 (22-30) mmol/L Anion Gap 8 (4-12) mmol/L BUN 24 H D (7-17) mg/dL Creatinine 1.06 H (0.7-1.0) mg/dL Estim Creat Clear Calc Not Reportable Estimated GFR 49 L (59 - ) Glucose 116 H (65-110) mg/dL POC Capillary Glucose 114 H (65-105) mg/dl Calcium 9.9 (8.4-10.2) mg/dL Total Bilirubin 0.9 (0.2-1.3) mg/dL AST 27 (14-36) U/L ALT 18 (6-35) U/L Alkaline Phosphatase 56 (38-126) U/L Troponin I < 0.012 (0.000-0.034) ng/mL Total Protein 7.0 (6.3-8.2) g/dL Albumin 4.4 (3.5-5.1) g/dL Discharge Plan Discharge Clinical Impression: Brain TIA Patient Disposition: Acute Care Hospital Condition: Stable Patient Language: Kiswahili Prescriptions: No Action losartan-hydrochlorothiazide 100-12.5 mg tablet 1 tablet PO DAILY pantoprazole 40 mg tablet,delayed release (DR/EC) 40 mg PO QAM Qty: 30 0RF Follow-up/Referrals: Jordan,Amadou Hartmann MD [Primary Care Provider] - Time of Disposition: 18:09 Quality Stroke Scale Stroke Scale 1: Stroke scale date:: 06/17/24 Stroke scale time:: 13:51 1a Level of consciousness: alert-0 1b Level of consciousness questions: answers both correctly-0 1c Level of consciousness commands: obeys both correctly-0 2 Best gaze: normal-0 3 Visual: no visual loss-0 4 Facial palsy: normal-0 5a Motor: left arm: no drift-0 5b Motor: right arm: no drift-0 6a Motor: left leg: no drift-0 6b Motor: right leg: no drift-0 7 Limb ataxia: absent-0 8 Sensory: normal-0 9 Best language: no aphasia-0 10 Dysarthria: normal-0 11 Extinction and inattention: no abnormality-0 Level:: 0
[2024-06-17 13:55] LABS: Alanine Aminotransferase 18 U/L (6-35); Albumin Level 4.4 g/dL (3.5-5.1); Alkaline Phosphatase 56 U/L (38-126); Anion Gap 8 mmol/L (4-12); Aspartate Amino Transferase 27 U/L (14-36); Bilirubin,Total 0.9 mg/dL (0.2-1.3); Blood Urea Nitrogen 24 mg/dL (7-17); Calcium 9.9 mg/dL (8.4-10.2); Carbon Dioxide 27 mmol/L (22-30); Chloride 106 mmol/L (98-107); Estimated Glomerular Filt Rate 49; Glucose 116 mg/dL (65-110); Sodium 141 mmol/L (137-145)
[2024-06-17 13:57] LABS: Partial Thromboplastin Time 26.1 Seconds (22.3-36.8); Prothrombin Time 13.5 Seconds (11.1-14.7)
[2024-06-17 13:58] LABS: Basophils Absolute Auto 0.1 K/mm3 (0.0-0.1); Basophils Percent Auto 0.8 % (0.2-1.2); Eosinophils Absolute Auto 0.2 K/mm3 (0-0.3); Hematocrit 42.5 % (37.0-47.0); Hemoglobin 13.7 g/dL (12.0-15.0); Immature Granulocyte Absolute 0.02 K/mm3 (0.00-0.031); Immature Granulocyte Percent A 0.3 % (0-0.5); Lymphocytes Absolute Auto 2.16 K/mm3 (0.9-3.2); Lymphocytes Percent Auto 27.9 % (18.3-44.2); Mean Corpuscular HGB Conc 32.2 g/dl (32-36); Mean Corpuscular Hemoglobin 30.4 pg (26-34); Mean Corpuscular Volume 94.4 fl (80-100); Mean Platelet Volume 9.4 fl (7.4-10.4); Monocytes Absolute Auto 0.7 K/mm3 (0.1-0.6); Monocytes Percent Auto 9.4 % (2.6-8.5); Neutrophils Absolute Auto 4.5 K/mm3 (1.3-6.7); Neutrophils Percent Auto 58.6 % (45.5-73.1); Platelet Count Result 206 k/mm3 (150-375); Red Cell Distribution Width 13.2 % (11.5-14.5); White Blood Count 7.7 K/mm3 (4.5-10.0)
--- OUTSIDE RECORDS SUMMARY | 2024-06-17 14:05 | XMS_ITS | CONTINUITY OF CARE DOCUMENT ---
Author Name adair, adair Address Unknown Organization [facility] Address [address] [place] [address] Phone [phone] Care Team Providers Care Certified Caregiver Name Role Phone Abel Escudero MD Unavailable [phone] CHACORTA BERNAL MD Unavailable [phone] CHACORTA BERNAL MD Unavailable [phone] PROBLEMS Condition Status Date Provider Notes OBESITY active Abel Escudero MD ENCOUNTERS Date Type Provider Location Encounter Diagnosis - In-person encounter Office Visit Abel Escudero MD [place] [facility] OBESITY VITAL SIGNS Date Observation Value Provider blood pressure, diastolic, left arm 83 mm [Hg] Miguel [place] blood pressure, systolic, left arm 147 mm [Hg] Miguel [place] blood pressure, diastolic 83 mm[Hg] Josey seph [place] blood pressure, systolic 147 mm[Hg] Karthikeyan [place] pulse rate 90 /min Miguel [place] oxygen saturation, oximetry 97 % Miguel [place] respiratory rate E&M 16 /min Miguel [place] weight E&M 166 [lb_av] Miguel [place] ALLERGIES No Known Drug Allergies HISTORY OF MEDICATION USE Medication Status Instructions Dates Provider Indications Com ments FISH OIL CAPSULE active 1 capsule by mo uth twice daily Miguel [place] GLUCOSAMINE-CHOND ROITIN TABS active 1 tablet by mouth daily Miguel [place] STOOL SOFTENER TABLET active 1 tablet by mouth twice daily Miguel [place] I-CAPS active 1 capsule by elina th twice daily Miguel [place] VITAMIN D TABS active 1 tablet by mout h daily Miguel Morales CALCIUM-MAGNESIUM -ZINC TABS active 2 tablets by mouth daily Miguel [place] SOCIAL HISTORY Date Observation Value Provider social history E&M Marital Statu s: Seema quinonez with family/friends E thnicity: Maico Jones RN social history reviewed E&M reviewed Maico Jones RN physical exercise, f requency, days per week yes [employer] caffeine use, averag e drinks per day yes [employer] alcohol use, average drinks per day none [employer] smoking status Non-smoker [employer] MENTAL STATUS Date Observation Value Provider assessment of judgme nt and insight E&M Alert and oriented to time, place and person. Mood and affect are normal. Maico Jones RN INSURANCE PROVIDERS Payer name Policy type / Coverage type [place] red democrat ID [employer] MEDICARE COMPLETE HMO Other [id number] TREATMENT PLAN Date Name Performer stress echo results Abel Escudero MD stress echo results: B P today: 147/83 Prior BP: / () S tress Echo Findings: Baseline ECG- non specific st abnormality. Post exercise ECG showed abnormal ST depression especially in the inferior leads. Baseline echo was normal. Peak exercise echo was normal5. In view of disparity on ECG an exercise myoview test may be c onsidered. GC (05/20/2009) n o further testing will be required. t he negative stress echo is reassuring and she does not need any further testing. Abel Escudero MD
--- OUTSIDE RECORDS SUMMARY | 2024-06-17 14:05 | XMS_ITS | Continuity of Care Document ---
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 Name Role Phone Gallegos OD, Stefan Unavailable Unavailable Procedures Procedure Date Contact Lens/es Other Type [employer] Eye Exam & Treatment Refraction Contact Lens/es Other Type [employer] Contact Lens Hydrophilic, Spherical [employer] CL Replacement - Vistakon Disp W/BW Soft [employer] Office/outpatient Visit, Est CL Replacement - Vistak[employer] Disp W/BW Soft [employer] Medical No Charge Contact Lens Check Refraction Post-op Follow-up Visit Remove Cataract, Insert Lens PreOp Assessment Performed Office/outpatient Visit, Est Optic Nerve Head Eval Script Printed/Phoned Pt Requ Or Pharm N ot Availab Echo Exam Of Eye Eye Exam & Treatment CL Replacement - Vistakon Disp W/BW Soft [employer] Eye Exam & Treatment Refraction Visual Functional Status Assessed Advance Directives Directive Yes / No Effective Date File Name No Information Encounters Encounter Description Practice Location Reason(s) For Visit Diagnoses Date Provider Providers Copied on [facility], [address] [place] [address] [address], [place], [place], [address], [place] tel:[phone] [facility] [place] No Information Apr-2 1-201 0 Gallegos OD Stefan. [address] [facility] , [address], [place], [place], [facility], [place]. tel:[phone] [facility], [address] [place] [address] [address], [place], [place], [address], [place] tel:[phone] [facility] No Information 2-201 0 Gallegos OD Stefan. [address] [facility] , [address], [place], [place], [facility], [place]. tel:[phone] [facility], [address] [place] [address] [address], [place], [place], [address], [place] tel:[phone] [facility] [place] No Information Nov-2 5-200 9 Gallegos OD Stefan. [address] [facility] , [address], [place], [facility], [place]. tel:[phone] [facility], [address] [place] [address] [address], [place], [place], [address], [place] tel:[phone] [facility] [place] No Information Asif-3 0-200 9 Gallegos OD Stefan. [facility] , [address], [place], [facility], [place]. tel:[phone] Office/outpat ient Visit, Est [facility], [address], [place], [place], [address], [place] tel:[phone] [facility] [place] No Information Mar-2 3-200 9 Krishnasamy Fer. [facility] [address], [place], [facility], [place]. tel:[phone] [facility], [address], [place], [place], [address], [place] tel:[phone] [facility] No Information Mar-0 2-200 9 Gallegos OD Stefan. [address] , [address], [place], [facility], [place]. tel:[phone] [facility], [address], [place], [place], [address], [place] tel:[phone] [facility] [place] No Information b1 8-200 9 Gallegos OD Stefan. [address] , [address], [place], [facility], [place]. tel:[phone] Referring Provider: Tc العلي, [facility] Corporate Center [address], [place], [facility]. tel:[phone] [facility], [address], [place], [place], [address], [place] tel:[phone] [facility] [place] No Information b-0 4-200 9 Suzie Montez. [facility] , [address], [place], [facility], [place]. tel:[phone] Referring Provider: Stefan العلي, [facility] [address], [place], [facility]. tel:[phone] [facility], [address], [place], [place], [address], [place] tel:[phone] [facility] No Information b-0 3-200 9 Suzie Montez. [facility] , [address], [place], [facility], [place]. tel:[phone] Referring Provider: Stefan العلي, [facility] [address], [place], [facility]. tel:[phone] Office/outpat ient Visit, [facility], [address], [place], [place], [address], [place] tel:[phone] [facility] [place] No Information 3-200 9 Suzie Montez. [address] [place], [place] [address]ate [place] , [address], [place], [facility], . tel:[phone] Referring Provider: Tc العلي, [address] [place], [place] [address]ate Center [address], [place], [place], [facility]. tel:[phone] [facility], [address] [place] [address] [address], [place], [place], [address], tel:[phone] [facility] [place] No Information 6-200 9 Gallegos OD Stefan. [address] [place] [address] , [address], [place], [facility], . tel:[phone] [facility], [address] [place] [address] [address], [place], [place], [address], tel:[phone] [facility] [place] No Information 1-200 8 Gallegos OD Stefan. [address] [place] [address] [address], [place], [facility], . tel:[phone] [facility], [address] [place] [address] [address], [place], [place], [address], tel:[phone] [facility] [place] No Information 2-200 8 Gallegos OD Stefan. [address] [place] [address] [address], [place], [facility], . tel:[phone] Family History Family Member Type Diagnosis Age At Onset No Information Payers Payer name Insurance type Covered alliance party ID Authoriza tion(s) No Information Social History Type Description Quantity Date Captured Comments Sex Female Smoking Status No Information Chief Complaint And Reason For Visit No Information Reason For Referral Reason For Referral No Information History Of Present Illness Encounter Date Complaint History Of Prese nt Illness No Information Functional Status Date Functional Assessmen t No Information Instructions Date Instruction Additional Infor mation No Information Assessments Type Assessment Date No Information Patient Care Teams Name Effective Dates (start - stop) Status Members No Information
[2024-06-17 14:06] LABS: Troponin I < 0.012 ng/mL (0.000-0.034)
--- OUTSIDE RECORDS SUMMARY | 2024-06-17 15:07 | XMS_ITS | CONTINUITY OF CARE DOCUMENT ---
Author Name adair, adair Address Unknown Organization [facility] Address [address] [facility] [address] [place] [address] Phone [phone] Care Team Providers Care Lead Accountant Name Role Phone Abel Escudero MD Unavailable CHACORTA BERNAL MD Unavailable [phone] CHACORTA BERNAL MD Unavailable [phone] PROBLEMS Condition Status Date Provider Notes OBESITY active Abel Escudero MD ENCOUNTERS Date Type Provider Location Encounter Diagnosis - In-person encounter Office Visit Abel Escudero MD [place] OBESITY VITAL SIGNS Date Observation Value [...] Payer name Policy type / Coverage type [place] red democrat ID UHC MEDICARE COMPLETE HMO Other [id number] TREATMENT PLAN Date Name Performer stress [...]
--- OUTSIDE RECORDS SUMMARY | 2024-06-17 15:07 | XMS_ITS | Continuity of Care Document ---
Author Organization [facility] Address [address] [place] [address] [place] [address] Phone Care Team Providers Care Restaurant Line Cook Name Role Phone Gallegos OD, Stefan Unavailable Unavailable Procedures Procedure Date Contact Lens/es Other Type naaptol b3 bio Eye Exam & Treatment Refraction Contact Lens/es Other Type naaptol b3 bio Contact Lens Hydrophilic, Spherical naaptol b3 bio CL Replacement - Vistak[employer] Disp W/BW Soft naaptol b3 bio Office/outpatient Visit, Est CL Replacement - Vistakon Disp W/BW Soft naaptol Medical No Charge Contact Lens Check Refraction Post-op Follow-up Visit Remove Cataract, Insert Lens PreOp Assessment Performed Office/outpatient Visit, Est Optic Nerve Head Eval Script Printed/Phoned Pt Requ Or Pharm N ot Availab Echo Exam Of Eye Eye Exam & Treatment CL Replacement - Vistakon Disp W/BW Soft naaptol b3 bio Eye Exam & Treatment Refraction Visual Functional Status Assessed Advance Directives Directive Yes / No Effective Date File Name No Information Encounters Encounter Description Practice Location Reason(s) For Visit Diagnoses Date Provider Providers [facility], [address] [place] [address] [address], [place], [place], [address], [place] tel:[phone] [facility] [place] No Information Apr-2 1-201 0 Gallegos OD Stefan. [address] [facility] , [address], [place], [place], [facility], [place]. tel:[phone] [facility], [address] [place] [address] [address], [place], [place], [address], [place] tel:[phone] [facility] No Information 2-201 0 Gallegos OD Stefan. [address] [facility] , [address], [place], [facility], [place]. tel:[phone] [facility], [address] [place] [address] [address], [place], [place], [address], [place] tel:[phone] [facility] [place] No Information Nov-2 5-200 9 Gallegos OD Stefan. [address] [facility] , [address], [place], [facility], [place]. tel:[phone] [facility], [address] [place] [address] [address], [place], [place], [address], [place] tel:[phone] [facility] [place] No Information Asif-3 0-200 9 Gallegos OD Stefan. [facility] , [address], [place], [facility], [place]. tel:[phone] Office/outpat ient Visit, Est [facility], [address], [place], [place], [address], [place] tel:[phone] [facility] [place] No Information Mar-2 3-200 9 Krishnasamy Fer. [facility] [address], [place], [facility], [place]. tel:[phone] [facility], [address], [place], [place], [address], [place] tel:[phone] SEC [facility] No Information Mar-0 2-200 9 Gallegos OD Stefan. [address] , [address], [place], [facility], [place]. tel:[phone] [facility], [address], [place], [place], [address], [place] tel:[phone] [facility] [place] No Information b1 8-200 9 Gallegos OD Stefan. [address] , [address], [place], [facility], [place]. tel:[phone] Referring Provider: Tc العلي, [facility] [address], [place], [facility]. tel:[phone] [facility], [address], [place], [place], [address], [place] tel:[phone] [facility] [place] No Information b-0 4-200 9 Suzie Montez. [facility] , [address], [place], [facility], [place]. tel:[phone] Referring Provider: Stefan العلي, [facility] [address], [place], [facility]. tel:[phone] [facility], [address], [place], [place], [address], [place] tel:[phone] [facility] No Information b-0 3-200 9 Suzie Montez. [facility] , [address], [place], [facility], [place]. tel:[phone] Referring Provider: Stefan العلي, [facility] [address], [place], [facility]. tel:[phone] Office/outpat ient Visit, [facility], [address], [place], [place], [address], [place] tel:[phone] [facility] [place] No Information 3-200 9 Suzie Montez. [address] [place], [place] [address]ate [place] , [address], [place], [facility], . tel:[phone] Referring Provider: Tc العلي, [address] [place], [place] [address]ate Center [address], [place], [facility]. tel:[phone] [facility], [address] [place] [address] [address], [place], [place], [address], tel:[phone] [facility] [place] No Information 6-200 9 Gallegos OD Stefan. [address] [place] [address] , [address], [place], [facility], . tel:[phone] [facility], [address] [place] [address] [address], [place], [place], [address], tel:[phone] [facility] [place] No Information 1-200 8 Gallegos OD Stefan. [address] [place] [address] [address], [place], [facility], . tel:[phone] [facility], [address] [place] [address] [address], [place], [place], [address], tel:[phone] [facility] [place] No Information 2-200 8 Gallegos OD Stefan. [address] [place] [address] [address], [place], [facility], . tel:[phone] Family History Family Member Type Diagnosis Age At Onset No Information Payers Payer name Insurance type Covered democrat ID Authoriza tion(s) No Information Social History [...]
== END 2024-06-17 19:18 | disposition short-term general hospital (02) ==
PROVIDERS: Emergency Medicine; Emergency Provider Emergency Medicine; PCP Internal Medicine
DX: G45.9 Transient cerebral ischemic attack, unspecified (principal); I10 Essential (primary) hypertension; E78.5 Hyperlipidemia, unspecified; Z90.710 Acquired absence of both cervix and uterus; Z90.49 Acquired absence of other specified parts of digestive tract; Z79.899 Other long term (current) drug therapy; I51.7 Cardiomegaly
CPT/HCPCS: 36415; 70450; 70496; 70498; 71045; 80053; 82948; 84484; 85025; 85610; 85730; 93005; 99285; Q9967

== ENCOUNTER 2025-02-06 11:56 | Outpatient (CLI) | payer MEDICARE, SELFPAY ==
--- NOTE | ~2025-02-06 | XR_ITS ---
XR lumbar spine 2-3V Indication: Acute bilateral low back pain wo sciatica Comparison: None Findings: Moderate loss of moderate loss of vertebral height throughout. Moderate osteopenia. No acute fracture or subluxation is identified. Moderate to severe loss of disc height throughout. Soft tissues unremarkable Impression: No acute abnormality. Reviewed, dictated and finalized at location P. ON CLASSER AIDE Impression: No acute abnormality.
--- NOTE | ~2025-02-06 | US_ITS ---
US renal BI 02/06/2025 13:09 Procedure: Realtime transabdominal ultrasound of the kidneys and bladder. Indication: Chronic kidney disease stage II Comparison: Ultrasound dated 05/20/2023 Findings: Renal echotexture is normal bilaterally without hydronephrosis, contour deforming mass or renal calculus. The right kidney measures 8.3 cm and left kidney measures 9 cm. Bladder within normal limits. Impression: 1: Unremarkable renal ultrasound. No stones, masses or hydronephrosis. Reviewed, dictated and finalized at location I. RATING INSPECTOR Impression: 1: Unremarkable renal ultrasound. No stones, masses or hydronephrosis.
== END 2025-02-06 11:57 | disposition home or self-care (01) ==
PROVIDERS: PCP Internal Medicine; Visit Provider Internal Medicine
DX: N18.2 Chronic kidney disease, stage 2 (mild) (principal); M54.50 Low back pain, unspecified
CPT/HCPCS: 72100; 76770

== ENCOUNTER 2025-02-17 09:37 | Outpatient (CLI) | payer MEDICARE, SELFPAY ==
--- OUTSIDE RECORDS SUMMARY | 2025-02-11 07:15 | XMS_ITS ---
Author Organization [facility] Address [address] [facility] [address] [facility] [address] [place] [address] Care Team Providers Care Chemical Processing Equipment Repairer Name Role Phone Balbir Goodman Unavailable [phone] Problems Problem Type SNOMED Code ICD Code Onset Dates Problem Status W/U Status Risk Notes Problem Chronic kidney disease stage 3 (disorder) (452520505) Chronic kidney disease, stage 3 unspecified (N18.30) Active confirmed Problem Essential hypertension (63172951) Essential hypertension (I10) Active confirmed Problem Hyperlipidemia (31623957) Hyperlipidemia, unspecified (E78.5) Active confirmed Problem Overactive bladder (736211298) Overactive bladder (N32.81) Active confirmed Problem Osteoarthritis (771659704) Unspecified osteoarthritis, unspecified site (M19.90) Active confirmed Problem Pure hyperglyceridemia (922410943) Pure hyperglyceridemia (E78.1) Active confirmed Encounters Encounter Location Date Provider Diagnosis [place] [facility] [address] [facility] [address] [place] [address] 02/11/2025 Balbir Goodman Chronic kidney disea se, stage 3 unspecified N18.30 ; Essential hypertension I10 ; Hyperlipidemia, unspecified E78.5 ; Overactive bladder N32.81 ; Unspecified osteoarthritis, unspecified site M19.90 and Pure hyperglyceridemia E78.1 Assessments Encounter Date Diagnosis (ICD Code) Assessment Notes Treatment Notes Treatment Clinical Notes Section Notes 02/11/2025 Chronic kidney disease, stage 3 unspecified (ICD-10 - N18.30) 02/11/2025 Essential hypertension (ICD-10 - I10) 02/11/2025 Hyperlipidemia, unspecified (ICD-10 - E78.5) 02/11/2025 Overactive bladder (ICD-10 - N32.81) 02/11/2025 Unspecified osteoarthritis, unspecified site (ICD-10 - M19.90) 02/11/2025 Pure hyperglyceridemia (ICD-10 - E78.1) Plan Of Treatment Next Appt Details Provider Name:Balbir Goodman , 02/18/2025 01:15:00 PM, [address], [place], [address], Progress Notes * Kari WALSH JDOB:[birth year] (89 yo F)Acc No.[id number]:02/11/2025 Progress Notes Patient: Kari BROWN Provider: Hilda TOM MD, F.A.C.P, F.A.S.N. :1935 A ge:89 Y S ex:Female Date:02/11/2025 [address] [facility] Subjective: * Chief Complaints: * * Medical History: Objective: * Vitals: Assessment: * Assessment: 1. C hronic kidney disease, stage 3 unspecified - N18.30 (Primary) 2 . E ssential hypertension - I10 3 . H yperlipidemia, unspecified - E78.5 ?4. O veractive bladder - N32.81 5 . U nspecified osteoarthritis, unspecified site - M19.90 6 . P ure hyperglyceridemia - E78.1 Plan: * Treatment: * Billing Information: * Visit Code: 83968 Office Visit, New Pt., Level 5. * Procedure Codes: * Electronic signature of Bouchra Goodman MD on 02/17/2025 at 10:53 AM POMOLOGIST Sign off status: Pending * Provider: Hilda TOM MD, F.A.C.P, F.A.S.N. Date: 04/14/2024 Generated for Printing/Faxing/eTransmitting on: 04/20/2024 10:53 AM POMOLOGIST
[2025-02-17 10:41] LABS: Hematocrit 42.0 % (37.0-47.0); Hemoglobin 13.3 g/dL (12.0-15.0); Immature Granulocyte Percent A 0.3 % (0-0.5); Lymphocytes Absolute Auto 1.79 K/mm3 (0.9-3.2); Mean Corpuscular HGB Conc 31.7 g/dl (32-36); Mean Corpuscular Hemoglobin 29.6 pg (26-34); Mean Corpuscular Volume 93.5 fl (80-100); Nucleated Red Blood Cells Absolute Auto 0.000 K/mm3 (0.0-0.012); Nucleated Red Blood Cells Perc 0.0 % (0.0-0.2); Platelet Count Result 248 k/mm3 (150-375); Red Blood Count 4.49 M/mm3 (4.2-5.4); White Blood Count 6.6 K/mm3 (4.5-10.0)
[2025-02-17 10:48] LABS: Add Urine Microscopic? YES; Appearance Urine Cloudy (Clear); Glucose Urine UA Negative (Negative); Leukocyte Esterase Ur 3+ LEU/UL (Negative); Need Manual Microscopic Reviewed; Nitrate Urine Positive (Negative); Specific Grav Ur 1.010 (1.001-1.035)
--- OUTSIDE RECORDS SUMMARY | 2025-02-17 10:53 | XMS_ITS | Patient Health Record ---
Author Organization [facility] Address [address] [place] [address] Care Team Providers Care Ceramic Tile Installer Name Role Phone Vicky Goodmanerjit Unavailable [phone] Reason For Referral No Information Problems Problem Type SNOMED Code ICD Code Onset Dates Problem Status W/U Status Risk Notes Problem Pure hyperglyceridemia (872336566) Pure hyperglyceridemia (E78.1) Active confirmed Problem Hyperlipidemia (15695696) Hyperlipidemia, unspecified (E78.5) Active confirmed Problem Osteoarthritis (307764232) Unspecified osteoarthritis, unspecified site (M19.90) Active confirmed Problem Overactive bladder (464883222) Overactive bladder (N32.81) Active confirmed Problem Essential hypertension (02835468) Essential hypertension (I10) Active confirmed Problem Chronic kidney disease stage 3 (disorder) (464808258) Chronic kidney disease, stage 3 unspecified (N18.30) Active confirmed Encounters Encounter Location Date Provider Diagnosis [facility] [address] [facility] [address] [place] [address] 02/11/2025 Balbir Goodman Chronic kidney disea se, [...] Name:Balbir Goodman , 02/18/2025 01:15:00 PM, [address] [place] [facility] [place], [address],
[2025-02-17 11:14] LABS: Parathyroid Intact 34.5 pg/mL (14.5-75.2)
[2025-02-17 11:19] LABS: Alanine Aminotransferase 17 U/L (6-35); Albumin Level 4.3 g/dL (3.5-5.1); Alkaline Phosphatase 74 U/L (38-126); Anion Gap 7 mmol/L (4-12); Aspartate Amino Transferase 29 U/L (14-36); Bilirubin,Total 0.7 mg/dL (0.2-1.3); Blood Urea Nitrogen 22 mg/dL (7-17); Calcium 10.0 mg/dL (8.4-10.2); Carbon Dioxide 28 mmol/L (22-30); Chloride 102 mmol/L (98-107); Cholesterol 182 mg/dL (0-200); Estimated Glomerular Filt Rate 52; Glucose 103 mg/dL (65-110); HDL Direct 37 mg/dL; Magnesium 2.1 mg/dL (1.6-2.3); Potassium 4.5 mmol/L (3.4-5.0); Sodium 137 mmol/L (137-145); Total Protein 7.5 g/dL (6.3-8.2); Triglycerides 226 mg/dL (<150); Uric Acid 5.0 mg/dL (2.5-7.5)
[2025-02-17 11:29] LABS: MALB Creatinine Ratio 27.7 mg/g (0-30)
[2025-02-17 11:32] LABS: Hemoglobin A1C 5.3 % (<5.7)
[2025-02-17 12:32] LABS: Total Protein Urine Random 13 mg/dL; Ur Ttl Prot Creatinine Ratio 0.30 mg/mg (0-0.20)
[2025-02-18 10:09] LABS: eGFR 35 (>59)
[2025-02-18 10:09] LABS: Chloride, Urine 73 mmol/L (Not Estab.)
[2025-02-18 15:09] LABS: ANA by IFA Rfx Titer/Pattern Positive (.)
[2025-02-18 23:07] LABS: Osmolality, Urine 353 mOsmol/kg (.)
== END 2025-02-17 09:38 | disposition home or self-care (01) ==
PROVIDERS: PCP Internal Medicine; Visit Provider Specialist
DX: I12.9 Hypertensive chronic kidney disease with stage 1 through stage 4 chronic kidney disease, or unspecified chronic kidney disease (principal); N18.30 Chronic kidney disease, stage 3 unspecified; Z11.4 Encounter for screening for human immunodeficiency virus [HIV]; R60.9 Edema, unspecified; E21.3 Hyperparathyroidism, unspecified; E55.9 Vitamin D deficiency, unspecified; Z21 Asymptomatic human immunodeficiency virus [HIV] infection status; R82.90 Unspecified abnormal findings in urine; Z79.4 Long term (current) use of insulin
CPT/HCPCS: 36415; 80053; 80061; 81001; 82043; 82306; 82436; 82570; 82610; 83036; 83735; 83935; 83970; 84133; 84156; 84300; 84550; 85025; 85652; 86037; 86038; 86160; 86162; 86225